=== PATIENT | female | born 1960 | race Caucasian/White ===

== ENCOUNTER 2016-10-27 21:23 | Emergency (ER) | payer MEDICAID | END 2016-10-28 02:30 | disposition home or self-care (01) | LOC: ER 21:23 | DX: R07.89 Other chest pain (principal); K21.9 Gastro-esophageal reflux disease without esophagitis; Z79.899 Other long term (current) drug therapy; Z79.82 Long term (current) use of aspirin; F17.210 Nicotine dependence, cigarettes, uncomplicated | CPT/HCPCS: 36415; 71010; 71020; 80053; 82550; 83690; 83735; 84484; 85025; 85610; 85730; 93005 ==